=== PATIENT | male | born 1990 | race Caucasian/White ===

== ENCOUNTER 2018-07-05 13:35 | Outpatient (RCR) | payer OTHER | END 2018-10-03 | disposition home or self-care (01) | LOC: WSOH | DX: S01.21XA Laceration without foreign body of nose, initial encounter (principal); R51 Headache; W20.8XXA Other cause of strike by thrown, projected or falling object, initial encounter; Y92.812 Truck as the place of occurrence of the external cause; Y99.0 Civilian activity done for income or pay ==